=== PATIENT | female | born 1985 | race Hispanic/Latino ===

== ENCOUNTER 2018-04-14 09:35 | Emergency (ER) | payer SELFPAY ==
[~2018-04-14] VITALS: Ht 149.9 cm; Wt 86.2 kg
--- NOTE | 2018-04-14 11:35 | Diagnostic Imaging Report ---
PROCEDURE:ANKLE 3+ VIEWS LEFT INDICATION:left ankle pain, rolled ankle COMPARISON:None. FINDINGS: Normal mineralization. No acute displaced fracture or dislocation. No lytic or blastic lesion. Ankle mortise is preserved. Moderate soft tissue swelling surrounding the ankle. CONCLUSION: Moderate soft tissue swelling surrounding the ankle, without acute, displaced fracture or dislocation. Angel Alexandre M.D. Dictated by: Angel Alexandre M.D. on 04/14/2018 at 11:39 Electronically approved by: Angel Alexandre M.D. on 04/14/2018 at 11:39
[2018-04-14] MEDS ORDERED: TRAMADOL HCL 50 MG TAB PO ONE (11:45)
== END 2018-04-14 11:50 | disposition home or self-care (01) ==
LOC: ER 09:35
DX: S93.492A Sprain of other ligament of left ankle, initial encounter (principal); X50.1XXA Overexertion from prolonged static or awkward postures, initial encounter; Y92.008 Other place in unspecified non-institutional (private) residence as the place of occurrence of the external cause
CPT/HCPCS: 99283